=== PATIENT | male | born 1970 | race Caucasian/White ===

== ENCOUNTER 2024-11-02 13:32 | Inpatient (IN) | payer MEDICARE, OTHER ==
[~2024-11-02] VITALS: Ht 172.7 cm; Wt 99.8 kg
[2024-11-02 14:28] LABS: BASOPHILS # (AUTO) 0.1 K/uL (0.0-0.2); BASOPHILS % (AUTO) 0.7 % (0.0-2.0); EOSINOPHILS # (AUTO) 0.5 K/uL (0.0-0.7); HEMATOCRIT 42 % (39-51); HEMOGLOBIN 14.5 g/dL (13.5-17.5); LYMPHOCYTES # (AUTO) 3.3 K/uL (0.8-4.8); MEAN CORPUSCULAR HEMOGLOBIN 32 PG (26.0-33.0); MEAN CORPUSCULAR HGB CONC 34 g/dl (31.0-36.0); MEAN CORPUSCULAR VOLUME 94 fL (80-96); MONOCYTES # (AUTO) 0.7 K/uL (0.1-1.30); MONOCYTES % (AUTO) 7.2 % (2.0-12.0); NEUTROPHILS # (AUTO) 5.2 K/uL (1.8-8.9); NEUTROPHILS % (AUTO) 53.1 % (43.0-81.0); PLATELET COUNT (AUTO) 328 K/uL (150-450); RED BLOOD CELL COUNT(AUTO) 4.51 MIL/uL (4.5-6.0); RED CELL DISTRIBUTION WIDTH 14.5 % (11.5-15.0); WHITE BLOOD COUNT (AUTO) 9.8 K/uL (4.3-11.0)
[2024-11-02] MEDS ORDERED: HALO5SYR IM (14:34)
[2024-11-02] MEDS ORDERED: AUSTEDO XR PO (14:34)
[2024-11-02] MEDS ORDERED: ATOR20TA PO (14:34)
[2024-11-02] MEDS ORDERED: LIDO1ADH82 TP (14:34)
[2024-11-02] MEDS ORDERED: VALP250S22 PO (14:34)
[2024-11-02] MEDS ORDERED: HALO100A4 IM (14:34)
[2024-11-02] MEDS ORDERED: IBUP-1957 PO (14:34)
[2024-11-02] MEDS ORDERED: OLAN10VI IM (14:34)
[2024-11-02] MEDS ORDERED: DOCU100C36 PO (14:34)
[2024-11-02] MEDS ORDERED: ACET325T53 PO (14:34)
[2024-11-02 14:42] LABS: ALANINE AMINOTRANSFERASE 16 U/L (12-78); ALBUMIN 3.9 g/dL (3.4-5.0); ALKALINE PHOSPHATASE 85 U/L (46-116); ASPARTATE AMINOTRANSFERASE 21 U/L (15-37); BILIRUBIN,DIRECT 0.1 mg/dL (0.0-0.2); BILIRUBIN,TOTAL 0.4 mg/dL (0.2-1.0); CALCIUM, SERUM 9.2 mg/dL (8.5-10.1); CARBON DIOXIDE 29 mmol/L (21-32); CHLORIDE 103 mmol/L (98-107); CREATININE 0.8 mg/dL (0.6-1.3); GLUCOSE 85 mg/dL (74-106); POTASSIUM 4.5 mmol/L (3.5-5.1); SODIUM SERUM 141 mmol/L (136-145); UREA NITROGEN, BLOOD 24 mg/dL (7-18)
[2024-11-02 14:43] LABS: ACETAMINOPHEN <10 ug/ml (10-30); ALCOHOL, BLOOD < 3 mg/dL (0-10)
[2024-11-02 15:15] LABS: AMPHETAMINE, URINE NEGATIVE (NEGATIVE); APPEARANCE,URINE CLEAR (CLEAR); BARBITURATE, URINE NEGATIVE (NEGATIVE); BENZODIAZEPINE, URINE NEGATIVE (NEGATIVE); BILIRUBIN,URINE NEGATIVE (NEGATIVE); BLOOD, URINE NEGATIVE Ery/uL (NEGATIVE); CANNABINOID, URINE NEGATIVE (NEGATIVE); COCCAINE, URINE NEGATIVE (NEGATIVE); COLOR,URINE YELLOW (YELLOW); KETONES,URINE TRACE mg/dL (NEGATIVE); LEUKOCYTE ESTERASE ,URINE NEGATIVE (NEGATIVE); NITRITE, URINE NEGATIVE (NEGATIVE); OPIATE, URINE NEGATIVE (NEGATIVE); PHENCYCLIDINE SCREEN,URINE NEGATIVE (NEGATIVE); PROTEIN,URINE NEGATIVE (NEGATIVE); UGLUCOSE NEGATIVE (NEGATIVE); UROBILINOGEN,URINE 0.2 EU/dL (0.2)
[2024-11-02 15:20] LABS: ADD URINE CULTURE NO; BACTERIA,URINE Rare /HPF (None Seen); WBC,URINE 0-2 /HPF (0-3)
[2024-11-02 15:21] LABS: SQUAMOUS EPITHELIAL CELL,UR 0-2 /HPF (None Seen)
[2024-11-02] MEDS: CLONIDINE HCL 0.1 MG TABLET PO PRN (18:15)
[2024-11-02] MEDS: METOPROLOL TARTRATE 25 MG TABLET PO ONE (18:30)
[2024-11-02] MEDS ORDERED: ZOLPIDEM TARTRATE 5 MG TABLET PO PRN ×3 (18:30→21:00)
[2024-11-02] MEDS ORDERED: QUETIAPINE FUMARATE 25 MG TABLET PO PRN (18:30)
[2024-11-02] MEDS ORDERED: MAGNESIUM HYDROXIDE 30 ML UDC PO PRN (18:30)
[2024-11-02] MEDS ORDERED: MAG HYDROX/AL HYDROX/SIMETH 30 ML UDC PO PRN (18:30)
[2024-11-02] MEDS: BLOOD SUGAR DIAGNOSTIC 1 EACH STRIP IN ONE (18:42)
[2024-11-02 19:01] VITALS: BP 112/83; TEMP 98.7; O2SAT 98
[2024-11-02 19:53] VITALS: BP 132/90; TEMP 98.2; O2SAT 99
[2024-11-02] MEDS: ACETAMINOPHEN 325 MG TABLET PO PRN (20:37)
[2024-11-02] MEDS: OLANZAPINE 5 MG TABLET PO ONE (21:11)
[2024-11-02] MEDS: ATORVASTATIN 10 MG TABLET PO SCH (21:11)
[2024-11-03 08:00] VITALS: BP 127/78; TEMP 98.6; O2SAT 100
[2024-11-03] MEDS: DOCUSATE SODIUM 100 MG CAPSULE PO SCH (08:53)
[2024-11-03] MEDS: ACETAMINOPHEN 325 MG TABLET PO SCH (08:53)
[2024-11-03] MEDS ORDERED: AUSTEDO 24 MG PO SCH (09:00)
[2024-11-03] MEDS: IBUPROFEN 600 MG TABLET PO PRN (10:03)
[2024-11-03] MEDS ORDERED: TEMAZEPAM 7.5 MG CAPSULE PO PRN (12:00)
[2024-11-03] MEDS: BENZTROPINE MESYLATE (1 MG) 1 MG TABLET PO SCH (13:18)
[2024-11-03] MEDS: DIVALPROEX SODIUM 125 MG TABLET.DR PO SCH (14:22)
[2024-11-03] MEDS: HALOPERIDOL 5 MG TABLET PO SCH (14:22)
[2024-11-03 16:00] VITALS: BP 113/50; TEMP 98; O2SAT 98
[2024-11-03 19:55] VITALS: BP 130/73; TEMP 97.8; O2SAT 98
[2024-11-04 16:00] VITALS: BP 141/78; TEMP 98; O2SAT 98
[2024-11-04 20:00] VITALS: BP 121/92; TEMP 98; O2SAT 97
[2024-11-04] MEDS: HALOPERIDOL LACTATE INJ 5 MG/ML VIAL IM PRN ×2 (22:47→22:48)
[2024-11-05 08:00] VITALS: BP 115/83; TEMP 97.9; O2SAT 98
[2024-11-05] MEDS: HALOPERIDOL DECANOATE IM 100 MG/ML AMPUL IM SCH (15:00)
[2024-11-05 16:00] VITALS: BP 160/103; TEMP 97.9; O2SAT 97
[2024-11-05 20:08] VITALS: BP 140/85; TEMP 97.9; O2SAT 97
[2024-11-06 08:00] VITALS: BP 108/64; TEMP 98.6; O2SAT 95
[2024-11-06] MEDS ORDERED: clonazePAM 0.5 MG TABLET PO PRN (13:00)
[2024-11-06 15:39] VITALS: BP 131/67; TEMP 98.6; O2SAT 96
[2024-11-06 20:03] VITALS: BP 131/81; TEMP 98.6; O2SAT 99
[2024-11-07 08:00] VITALS: BP 132/88; TEMP 98.8; O2SAT 97
[2024-11-07] MEDS: ZIPRASIDONE MESYLATE 20 MG/VIAL VIAL IM STA (09:55)
[2024-11-07] MEDS: clonazePAM 0.5 MG TABLET PO SCH (15:33)
[2024-11-07 16:00] VITALS: BP 120/97; TEMP 98.6; O2SAT 96
[2024-11-07 19:57] VITALS: BP 101/55; TEMP 98.5; O2SAT 96
[2024-11-08 08:00] VITALS: BP 159/120; TEMP 97.8; O2SAT 97
[2024-11-08] MEDS: HALOPERIDOL LACTATE INJ 5 MG/ML VIAL IM PRN (08:36)
[2024-11-08 15:56] VITALS: BP 114/69; TEMP 98; O2SAT 98
[2024-11-08 19:59] VITALS: BP 119/60; TEMP 98; O2SAT 98
[2024-11-08] MEDS: DIVALPROEX SODIUM 500 MG TABLET.DR PO SCH (21:00)
[2024-11-09 08:30] VITALS: BP 116/64
[2024-11-09 09:30] VITALS: BP 93/64
[2024-11-09 10:44] VITALS: BP 93/64
[2024-11-09 14:52] VITALS: BP 90/55
[2024-11-09 16:00] VITALS: BP 90/55; TEMP 98.2; O2SAT 96
[2024-11-09 20:15] VITALS: BP 106/59; TEMP 98.2; O2SAT 96
[2024-11-10 08:00] VITALS: BP 152/100; TEMP 98.6; O2SAT 98
[2024-11-10 16:00] VITALS: BP_SYST 132; BP_SYST 138; BP_DIAS 81; BP_DIAS 90; TEMP 97.9; TEMP 98; O2SAT 100; O2SAT 94
[2024-11-10 20:00] VITALS: BP 107/51; TEMP 98.6; O2SAT 95
[2024-11-11 08:00] VITALS: BP 100/66; TEMP 97.8; O2SAT 98
[2024-11-11] MEDS: HALOPERIDOL LACTATE INJ 5 MG/ML VIAL IM ONE (10:29)
[2024-11-11] MEDS: HALOPERIDOL DECANOATE IM 100 MG/ML AMPUL IM ONE (13:14)
[2024-11-12 08:00] VITALS: BP 100/50; TEMP 97.9; O2SAT 96
[2024-11-12 16:58] VITALS: BP 123/101; TEMP 98; O2SAT 94
[2024-11-12 21:02] VITALS: BP 110/54; TEMP 98.1; O2SAT 97
[2024-11-13 08:00] VITALS: BP 136/85; TEMP 98.6; O2SAT 94
[2024-11-13 16:00] VITALS: BP 128/83; TEMP 97.9; O2SAT 98
[2024-11-14 08:00] VITALS: BP 146/98; TEMP 98.4; O2SAT 98
[2024-11-14] MEDS ORDERED: HALOPERIDOL LACTATE INJ 5 MG/ML VIAL IM PRN (14:00)
[2024-11-14] MEDS ORDERED: HALOPERIDOL 5 MG TABLET PO PRN (14:00)
[2024-11-14 14:02] VITALS: TEMP 97.9
[2024-12-04] MEDS ORDERED: HALOPERIDOL DECANOATE IM 100 MG/ML AMPUL IM SCH ×2 (09:00)
== END 2024-11-14 15:30 | DRG 885 ==
LOC: ER 13:35 → GPS 17:52
PROVIDERS: ADMIT Psychiatry & Neurology Psychiatry
DX: F20.0 Paranoid schizophrenia (principal); F29 Unspecified psychosis not due to a substance or known physiological condition; E78.5 Hyperlipidemia, unspecified; E03.9 Hypothyroidism, unspecified; F39 Unspecified mood [affective] disorder; F41.9 Anxiety disorder, unspecified; Z73.6 Limitation of activities due to disability; F06.70 Mild neurocognitive disorder due to known physiological condition without behavioral disturbance; F43.10 Post-traumatic stress disorder, unspecified; R62.50 Unspecified lack of expected normal physiological development in childhood; R26.9 Unspecified abnormalities of gait and mobility; M81.0 Age-related osteoporosis without current pathological fracture; G20.C Parkinsonism, unspecified; Z91.148 Patient's other noncompliance with medication regimen for other reason; I25.10 Atherosclerotic heart disease of native coronary artery without angina pectoris
CPT/HCPCS: 36415; 80048-TC; 80076-TC; 81001; 85025-TC; 87081-TC; 97110-TC; 97112-TC; 97530-TC; G0480; J1630; J1631; J3486